=== PATIENT | male | born 1970 | race Caucasian/White ===

== ENCOUNTER 2024-09-24 09:12 | Emergency (ER) | payer BC ==
[~2024-09-24] VITALS: Ht 165.1 cm; Wt 68.8 kg
[2024-09-24 10:45] LABS: BILIRUBIN,URINE NEGATIVE (Neg); CLARITY,URINE CLEAR (Clear); COLOR,URINE YELLOW (Yellow); GLUCOSE, URINE NEGATIVE (Neg); KETONES,URINE NEGATIVE (Neg); LEUKOCYTE ESTERASE ,URINE NEGATIVE (Neg); NITRITES, URINE NEGATIVE (Neg); OCCULT BLOOD,URINE NEGATIVE (Neg); PROTEIN,URINE NEGATIVE (Neg); UROBILINOGEN,URINE 0.2 E.U/dL (0.2-1.0)
[2024-09-24 10:47] LABS: UA COLLECTION TYPE CLN CATCH MIDSTREAM
[2024-09-24] MEDS ORDERED: FLO0.4C PO (11:02)
[2024-09-24] MEDS ORDERED: CIPR-202 PO (11:02)
[2024-09-24] MEDS: CefTRIAXone 1000mg IM Kit (w/lidocaine diluent) IM ONE (11:12)
[2024-09-24 11:17] VITALS: BP 130/82; PULSE 79; RESP 16; TEMP 98.1; O2SAT 99
== END 2024-09-24 11:21 | disposition home or self-care (01) ==
LOC: ER 09:13
DX: R30.0 Dysuria (principal)
CPT/HCPCS: 81003; 96372; 99283; J0696